=== PATIENT | female | born 1985 | race American Indian/Alaskan Native ===

== ENCOUNTER 2020-09-20 13:35 | Emergency (ER) | payer MEDICAID ==
[2020-09-20 13:45] VITALS: BP 200/114; PULSE 67
--- NOTE | 2020-09-20 14:03 | EDM.PDOC ---
ED HPI GENERAL MEDICAL PROBLEM - General Chief Complaint: General Stated Complaint: INFECTION IN TOOTH Time Seen by Provider: 09/20/20 13:40 Source of Information: Reports: Patient, Family History Limitations: Reports: No Limitations - History of Present Illness INITIAL COMMENTS - FREE TEXT/NARRATIVE: 35-year-old female with left mandibular pain that has been bothering her for a couple of months, with a small lesion on the gum. Over the past 2 to 3 days she has had increased pain and swelling, and the small lesion has gotten larger as well and is bothering her. No facial swelling, no fevers or chills. Onset: Gradual Duration: Day(s): (Worse over the last 2 to 3 days) Location: Reports: Other (Left mandible) Associated Symptoms: Reports: No Other Symptoms - Related Data Allergies Allergy/AdvReac Type Severity Reaction Status Date / Time No Known Allergies Allergy Verified 09/20/20 13:44 Home Meds: Home Meds NK [No Known Home Meds] 09/20/20 [History] Past Medical History HEENT History: Reports: Impaired Vision Cardiovascular History: Reports: Hypertension Gastrointestinal History: Reports: None [employer] History: Reports: Psychiatric History: Reports: Anxiety, Depression, Panic Attack, PTSD - Infectious Disease History Infectious Disease History: Reports: Chicken Pox - Past Surgical History Head Surgeries/Procedures: Reports: None HEENT Surgical History: Reports: None Cardiovascular Surgical History: Reports: None GI Surgical History: Reports: Cholecystectomy Dermatological Surgical History: Reports: None Social & Family History - Tobacco Use Tobacco Use Status *Q: Current Some Day Tobacco User Years of Tobacco use: 15 Packs/Tins Daily: 0.1 Used Tobacco, but Quit: No Second Hand Smoke Exposure: Yes - Caffeine Use Caffeine Use: Reports: Coffee - Recreational Drug Use Recreational Drug Use: No ED ROS GENERAL - Review of Systems Review Of Systems: See Below Constitutional: Denies: Fever, Chills HEENT: Reports: Dental Pain, Other (Mucosal lesion which has enlarged) Respiratory: Denies: Shortness of Breath GI/Abdominal: Denies: Abdominal Pain Neurological: Reports: No Symptoms. Denies: Headache Free Text/Narrative/Comment: Patient is hypertensive and admits she is supposed to be on blood pressure medication. ED EXAM, GENERAL - Physical Exam Exam: See Below Exam Limited By: No Limitations General Appearance: Alert, No Apparent Distress Eye Exam: Bilateral Eye: Normal Inspection Throat/Mouth: Other (Patient has some increased erythema and swelling of the periodontal gums on the left mandible, she also has a polypoid small lesion that appears to be a mucosal cyst but it does not appear to be inflamed.) Head: Atraumatic Neck: No: Lymphadenopathy (R), Lymphadenopathy (L) Respiratory/Chest: No Respiratory Distress Cardiovascular: Regular Rate, Rhythm Course - Vital Signs Last Recorded V/S: Last Vital Signs Temp 97.8 F 09/20/20 13:47 Pulse 67 09/20/20 13:47 Resp 15 09/20/20 13:47 BP 200/114 H 09/20/20 13:47 Pulse Ox 99 09/20/20 13:47 - Re-Assessments/Exams Free Text/Narrative Re-Assessment/Exam: 09/20/20 16:34 Patient was not only started on penicillin 500mg 4 times a day but also on lisinopril 20 mg daily. I tried to impress upon the patient that although she is not symptomatic, it is very important for her to take her blood pressure medication on an ongoing basis and to follow it more closely. I wrote for a dental referral tomorrow for dental x-rays and a dental exam, and that she will check with her primary care provider next week to recheck her blood pressure. Departure - Departure Time of Disposition: 14:07 Disposition: Home, Self-Care 01 Clinical Impression: Dental abscess Hypertension Qualifiers: Hypertension type: primary hypertension Qualified Code(s): I10 - Essential (primary) hypertension - Discharge Information Instructions: Dental Abscess Referrals: PCP,None [Primary Care Provider] - Forms: ED Department Discharge Care Plan Goals: Take antibiotic 4 times a day and work into the dental clinic tomorrow for consultation. You need to start and continue your blood pressure medication on a regular basis, recheck with your regular doctor before you run out. Sepsis Event Note (ED) - Evaluation Sepsis Screening Result: No Definite Risk - Focused Exam Vital Signs: Vital Signs Temp Pulse Resp BP Pulse Ox 09/20/20 13:47 97.8 F 67 15 200/114 H 99 09/20/20 13:44 97.8 F 67 15 200/114 H 99
== END 2020-09-20 14:14 | disposition home or self-care (01) ==
LOC: JP.ED 13:35
DX: K04.7 Periapical abscess without sinus (principal); I10 Essential (primary) hypertension; Z72.0 Tobacco use
CPT/HCPCS: 99282